=== PATIENT | female | born 1975 | race Two or more races ===

== ENCOUNTER 2022-09-12 09:36 | Emergency (ER) | payer OTHER ==
[~2022-09-12] VITALS: Ht 167.6 cm; Wt 75.0 kg
[2022-09-12] MEDS ORDERED: IBUPROFEN 600MG TABLET PO STA (12:15)
[2022-09-12 13:14] LABS: BASOPHILS % 0.5 % (0.0-2.0); EOSINOPHILS % 0.2 % (0.0-5.0); HEMATOCRIT. 36.7 % (36.0-48.0); LYMPHOCYTES % 23.9 % (20.0-50.0); MEAN CORPUSCULAR HEMOGLOBIN 27.1 pg (28.0-32.0); MEAN CORPUSCULAR VOLUME 83.1 fL (81.0-99.0); MEAN PLATELET VOLUME 7.8 fl (7.4-10.4); MONOCYTES % 6.9 % (2.0-8.0); NEUTROPHILS % 68.5 % (40.0-76.0); PLATELET 245 x1000/uL (130-400); RED BLOOD CELL COUNT 4.42 mill/uL (4.2-5.4); RED CELL DISTRIBUTION WIDTH 14.1 % (11.6-14.6)
[2022-09-12 13:22] LABS: CHLORIDE 98 mEq/L (98-107)
[2022-09-12 13:33] LABS: CREATINE KINASE 99 IU/L (26-192); HCG SCREEN NEGATIVE
[2022-09-12] MEDS ORDERED: HYDROCODONE/ACETAMINOPHEN 5/325MG TABLET PO ONE (14:15)
[2022-09-12] MEDS ORDERED: IBUP-2028 MT (16:19)
[2022-09-12 17:01] VITALS: BP 122/88
== END 2022-09-12 17:14 | disposition home or self-care (01) ==
LOC: ER 09:36
DX: I31.9 Disease of pericardium, unspecified (principal); R74.01 Elevation of levels of liver transaminase levels; Z20.822 Contact with and (suspected) exposure to COVID-19
CPT/HCPCS: 36415; 71045; 71275; 80053; 81025; 82550; 84443; 84484; 84703; 85025; 85379; 87426; 93970; 99285; C9803; Z7610